=== PATIENT | female | born 1955 | race Caucasian/White ===

== ENCOUNTER → 2017-11-12 08:42 | Outpatient (CLI) | payer BC | END | disposition home or self-care (01) | LOC: D.US 08:42 | DX: M79.661 Pain in right lower leg (principal) ==

== ENCOUNTER → 2018-10-25 15:26 | Outpatient (CLI) | payer BC | END | disposition home or self-care (01) | LOC: D.MRI 15:26 | DX: S83.232A Complex tear of medial meniscus, current injury, left knee, initial encounter (principal) ==